=== PATIENT | female | born 1990 | race Caucasian/White ===

== ENCOUNTER 2021-11-21 18:47 | Emergency (ER) | payer OTHER ==
[~2021-11-21] VITALS: Ht 162.6 cm; Wt 55.0 kg
[2021-11-21 21:32] LABS: HEMATOCRIT. 37.6 % (36.0-48.0); HEMOGLOBIN. 12.8 g/dL (12.0-16.0); MEAN CORPUSCULAR HEMOGLOBIN 38.1 pg (28.0-32.0); MEAN CORPUSCULAR VOLUME 112.1 fL (81.0-99.0); MEAN PLATELET VOLUME 8.3 fl (7.4-10.4); PLATELET 138 x1000/uL (130-400); RED BLOOD CELL COUNT 3.35 mill/uL (4.2-5.4)
[2021-11-21 21:45] LABS: CHLORIDE 94 mEq/L (98-107)
[2021-11-21 21:47] LABS: HCG SCREEN NEGATIVE
[2021-11-21 21:52] LABS: ETHANOL BLOOD < 10 mg/dL
[2021-11-21 22:52] LABS: PLATELET ESTIMATE NORMAL
[2021-11-22 01:20] VITALS: BP 112/88
== END 2021-11-22 01:10 | disposition home or self-care (01) ==
LOC: ER 18:47
DX: R56.9 Unspecified convulsions (principal)
CPT/HCPCS: 36415; 80053; 80320; 84703; 85025; 99283; G0480